=== PATIENT | female | born 1980 | race Caucasian/White ===

== ENCOUNTER 2017-12-26 05:28 | Day surgery (SDC) | payer OTHER ==
[~2017-12-26] VITALS: Ht 167.6 cm; Wt 81.3 kg
[~2017-12-26 05:28] MED LIST: ADVAIR 500/501 DISK IH; DILAUDID2 MG PO; LEVEMIR FL100 UNIT/1 SC; NOVOLOG PE100 UNITS/ SC; VENTOLIN HFA18 GM IH; ZANTAC300 MG PO; ZOFRAN4 MG PO
[2017-12-26 06:55] VITALS: BP 145/92
[2017-12-26 10:12] VITALS: BP 134/83
== END 2017-12-26 10:45 | disposition home or self-care (01) ==
LOC: SDC 05:28
PROVIDERS: Ophthalmology
DX: H33.41 Traction detachment of retina, right eye (principal); H35.61 Retinal hemorrhage, right eye; E11.65 Type 2 diabetes mellitus with hyperglycemia; Z79.4 Long term (current) use of insulin; Z88.1 Allergy status to other antibiotic agents; Z88.5 Allergy status to narcotic agent; Z88.8 Allergy status to other drugs, medicaments and biological substances; Z82.49 Family history of ischemic heart disease and other diseases of the circulatory system; Z83.3 Family history of diabetes mellitus; Z82.5 Family history of asthma and other chronic lower respiratory diseases
CPT/HCPCS: 82948; 87641; J0690; J1100; J1120; J2370; J2405; J2765; J2795; J3010; J3300